=== PATIENT | male | born 1965 | race Caucasian/White ===

== ENCOUNTER 2016-11-28 00:44 | Emergency (ER) | payer MEDICAID, OTHER ==
[~2016-11-28] VITALS: Ht 190.5 cm; Wt 104.3 kg
--- NOTE | 2016-11-28 01:29 | Emergency Room Report ---
History of Present Illness General Chief Complaint: Pain Source: Patient Present Illness HPI 39-year-old male no significant past medical history presenting with right- sided neck pain. Patient states that he had dental procedure today, cavity filling in right lower dental area, states that he took one antibiotic dose, proceeded to have a right-sided neck pain tonight. Denies any shortness of breath, fever chills, chest pain Allergies: Coded Allergies: No Known Allergies (Unverified , 11/28/16) Patient History Past Medical History: see triage record Past Surgical History: none Pertinent Family History: none Reviewed Nursing Documentation: PMH: Agreed, PSxH: Agreed Nursing Documentation-PMH Past Medical History: No Stated History Review of Systems All Other Systems: negative except mentioned in HPI Physical Exam Vital Signs Date Time Temp Pulse Resp B/P (MAP) Pulse Ox O2 Delivery O2 Flow Rate FiO2 11/28/16 01:08 98.2 68 20 145/92 99 Room Air Sp02 EP Interpretation: reviewed, normal General Appearance: normal inspection, well appearing, alert, GCS 15, non-toxic , mild distress, other - Speaking complete sentences without any stridor Head: normocephalic, atraumatic Eyes: bilateral eye normal inspection, bilateral eye PERRL, bilateral eye EOMI ENT: normal voice, moist mucus membranes, other - Dental caries, right lower molar filling, no signs of dental abscess, no fluctuance, no tenderness along the gumline Neck: other - Right neck with mild edema noted, tender to palpation, mild erythema Respiratory: normal inspection, lungs clear, normal breath sounds, no respiratory distress, no retraction, no wheezing, speaking full sentences, chest symmetrical Cardiovascular #1: normal inspection, regular rate, rhythm, no edema, normal capillary refill Cardiovascular #2: 2+ radial (R), 2+ radial (L) Gastrointestinal: normal inspection, non tender, soft, non-distended, no guarding Genitourinary: no CVA tenderness Musculoskeletal: normal inspection, back normal, normal range of motion, non- tender Neurologic: normal inspection, alert, oriented x3, responsive, motor strength/ tone normal, sensory intact, normal gait, speech normal Psychiatric: normal inspection, judgement/insight normal, memory normal Skin: normal inspection, normal color, no rash, warm/dry, well hydrated, normal turgor Medical Decision Making Diagnostic Impression: Primary Impression: Submandibular sialoadenitis ER Course 42-year-old male with right neck pain and swelling DDX: No signs of dental abscess, rule out deep space neck infection/abscess Plan: Obtain labs, CT neck with IV contrast ER course: Patient has been monitored during ED stay, HD stable Continues to speak in complete sentences, without any stridor, feels much better with medications Patient's CAT scan negative for abscess, submandibular sialoadenitis, patient appears clinically well, nontoxic, able to take by mouth medication. Extensive conversation held with the patient and shared decision making to discharge patient to home, with strict 48 hour followup, to primary care doctor's office or emergency room for recheck. Patient also instructed to followup with the ENT specialist within one week dose clindamycin given in ED Disposition: Patient discharged to home Patient discharge with prescription of clindamycin Strict return precautions discussed with patient such as throat swelling, shortness of breath, high fever chills, inability to tolerate by mouth Please note that this Emergency Department Report was dictated using [email or web address] analyst technology software, occasionally this can lead to erroneous entry secondary to interpretation by the dictation equipment. Laboratory Tests Test 11/28/16 01:45 White Blood Count 14.2 K/UL (4.8-10.8) H Red Blood Count 5.55 M/UL (4.70-6.10) Hemoglobin 15.8 G/DL (14.2-18.0) Hematocrit 46.7 % (42.0-52.0) Mean Corpuscular Volume 84 FL (80-99) Mean Corpuscular Hemoglobin 28.4 PG (27.0-31.0) Mean Corpuscular Hemoglobin Concent 33.8 G/DL (32.0-36.0) Red Cell Distribution Width 11.4 % (11.6-14.8) L Platelet Count 206 K/UL (150-450) Mean Platelet Volume 8.6 FL (6.5-10.1) Neutrophils (%) (Auto) 64.1 % (45.0-75.0) Lymphocytes (%) (Auto) 24.7 % (20.0-45.0) Monocytes (%) (Auto) 8.0 % (1.0-10.0) Eosinophils (%) (Auto) 1.9 % (0.0-3.0) Basophils (%) (Auto) 1.4 % (0.0-2.0) Sodium Level 140 mEQ/L (135-145) Potassium Level 3.6 mEQ/L (3.4-4.9) Chloride Level 101 mEQ/L (98-107) Carbon Dioxide Level 26 mEQ/L (20-30) Anion Gap 13 (5-15) Blood Urea Nitrogen 18 mg/dL (7-23) Creatinine 1.0 mg/dL (0.7-1.2) Estimate Glomerular Filtration Rate > 60 mL/min (>60) Glucose Level 112 mg/dL (74-106) H Calcium Level 9.5 mg/dL (8.6-10.2) Total Bilirubin 0.7 mg/dL (0.0-1.2) Aspartate Amino Transferase (AST) 15 U/L (5-40) Alanine Aminotransferase (ALT) 19 U/L (3-41) Alkaline Phosphatase 74 U/L (40-129) Total Protein 7.6 g/dL (6.6-8.7) Albumin 4.6 g/dL (3.5-5.2) Globulin 3.0 g/dL Albumin/Globulin Ratio 1.5 (1.0-2.7) Rhythm Strip Diag. Results EP Interpretation: yes Rate: 80 Rhythm: NSR, no PVC's, no ectopy CT/MRI/US Diagnostic Results CT/MRI/US Diagnostic Results : Imaging Test Ordered: CT neck Impression CT NECK: Marked heterogeneous enlargement of left lobe of thyroid with extension to the upper mediastinum and there is mild resulting deviation of the trachea to the right but the trachea is not significantly narrowed. Subcentimeter right thyroid nodule. Asymmetrically larger appearance of right submandibular gland is likely related to positioning rather than true gland enlargement, but there is some right submandibular space fat stranding and overlying platysmal thickening and, therefore, possibility of right submandibular sialoadenitis should be considered. Also, prominent but not significantly enlarged right submandibular lymph node. No fluid collections. Osseous structures are unremarkable. Sinuses and lung apices are clear. by [employer] Electronically signed by Florentino Bliss MD Last Vital Signs Date Time Temp Pulse Resp B/P (MAP) Pulse Ox O2 Delivery O2 Flow Rate FiO2 11/28/16 01:08 98.2 68 20 145/92 99 Room Air Disposition: HOME, SELF-CARE Condition: Improved Scripts Clindamycin Hcl (CLINDAMYCIN HCL) 300 Mg Capsule 300 MG ORAL FOUR TIMES A DAY for 7 Days, #28 CAP 0 Refills Prov: Florentino Bliss M.D. 11/28/16 Florentino Bliss M.D. Nov 28, 2016 01:29
[2016-11-28] MEDS ORDERED: Morphine Sulfate 4mg/ml Inj IVP ONE (01:30)
[2016-11-28 01:35] VITALS: BP 145/92
[2016-11-28 02:02] LABS: BASOPHILS % (AUTO) 1.4 % (0.0-2.0); EOSINOPHILS % (AUTO) 1.9 % (0.0-3.0); LYMPHOCYTES % (AUTO) 24.7 % (20.0-45.0); MEAN CORPUSCULAR HEMOGLOBIN 28.4 PG (27.0-31.0); MEAN CORPUSCULAR HGB CONC 33.8 G/DL (32.0-36.0); MEAN CORPUSCULAR VOLUME 84 FL (80-99); MEAN PLATELET VOLUME 8.6 FL (6.5-10.1); NEUTROPHILS % (AUTO) 64.1 % (45.0-75.0); PLATELET COUNT 206 K/UL (150-450); RED BLOOD COUNT 5.55 M/UL (4.70-6.10); RED CELL DISTRIBUTION WIDTH 11.4 % (11.6-14.8); WHITE BLOOD COUNT 14.2 K/UL (4.8-10.8)
[2016-11-28 02:17] LABS: ALANINE AMINOTRANSFERASE 19 U/L (3-41); ALBUMIN/GLOBULIN RATIO 1.5 (1.0-2.7); ANION GAP 13 (5-15); ASPARTATE AMINO TRANSFERASE 15 U/L (5-40); CALCIUM 9.5 mg/dL (8.6-10.2); CARBON DIOXIDE 26 mEQ/L (20-30); CHLORIDE 101 mEQ/L (98-107); GLOMERULAR FILTRATION RATE > 60 mL/min (>60); HEMOLYSIS 8; POTASSIUM 3.6 mEQ/L (3.4-4.9); SODIUM 140 mEQ/L (135-145); TOTAL PROTEIN 7.6 g/dL (6.6-8.7)
[2016-11-28] MEDS ORDERED: Clindamycin 600mg 50 ML IVPB ONE (02:45)
[2016-11-28] MEDS ORDERED: Mylanta II UD 30ml ORAL ONE (04:00)
[2016-11-28] MEDS ORDERED: Lidocaine 2% Visc 15ml soln ORAL ONE (04:00)
[2016-11-28] MEDS ORDERED: Dicyclomine HCl 10mg/5ml oral soln ORAL ONE (04:00)
[2016-11-28 04:16] VITALS: BP 139/72
[2016-11-28] MEDS ORDERED: CLINDAMYCIN HC300 MG ORAL (04:25)
[2016-11-28 04:40] VITALS: BP 139/72
--- NOTE | 2016-11-28 11:59 | Diagnostic Imaging Report ---
Indication: Right-sided throat pain Technique: IV administration nonionic contrast Spiral acquisitions obtained through the neck Multiplanar reconstructions were generated. Total dose length product 560 mGycm. CTDIvol(s) 18 mGy. Radiation dose was minimized using automated exposure control Comparison: None Findings: There is equivocal asymmetric slight prominence of the right submandibular salivary gland and equivocal slight stranding of the surrounding fat and adjacent platysma muscle. The parotid glands are unremarkable. No salivary gland calculi demonstrated. Nasopharynx, oropharynx, hypopharynx, larynx symmetric, unremarkable. There are prominent bilateral anterior triangle jugulodigastric nodes measuring 2.5 cm long axis diameter bilaterally. No prevertebral soft tissue swelling. The parapharyngeal spaces are symmetric and unremarkable. No evidence of tonsillar swelling. No findings to suggest cervical abscess. The left side of the thyroid is enlarged, contains multiple masses, largest measuring 3.7 cm long axis dimension. Smaller nodules are seen in the right thyroid lobe. The enlarged left thyroid lobe deviates the trachea to the right. No definite calculi demonstrated. There are mild degenerative changes of the cervical spine. The included lung apices are clear. The included upper mediastinum is unremarkable. The visualized sinuses are clear. The mastoid air cells are clear. The visualized intracranial structures are unremarkable Impression: Questionable slight asymmetric enlargement of the right submandibular salivary gland. Possibly just physiologic, equivocal slight stranding of the adjacent fat and thickening of the adjacent platysma muscle raises concern for acute sialadenitis. No associated calculi demonstrated. Correlate with clinical findings. Nonspecific prominence to the bilateral jugulodigastric lymph nodes Markedly enlarged multinodular left thyroid lobe. Underlying malignancy not excludable, and further followup is recommended The CT scanner at [facility] is accredited by the [employer] and the scans are performed using protocols designed to limit radiation exposure to as low as reasonably achievable to attain images of sufficient resolution adequate for diagnostic evaluation.
== END 2016-11-28 04:50 | disposition home or self-care (01) ==
LOC: EMR 01:01
DX: K11.20 Sialoadenitis, unspecified (principal); K02.9 Dental caries, unspecified; E04.2 Nontoxic multinodular goiter
CPT/HCPCS: 36415; 70491; 80053; 85025; 96361; 96374; 96375; 99284; J2270; J2405; Q9967; S0028; S0077

== ENCOUNTER 2016-12-01 08:41 | Emergency (ER) | payer MEDICAID, OTHER ==
[~2016-12-01] VITALS: Ht 182.9 cm; Wt 86.2 kg
[~2016-12-01 08:41] MED LIST: CLINDAMYCIN HC300 MG ORAL
[2016-12-01 08:55] VITALS: BP 142/96
[2016-12-01] MEDS ORDERED: Morphine Sulfate 4mg/ml Inj IVP ONE ×2 (09:00→10:45)
[2016-12-01] MEDS ORDERED: Clindamycin 900mg 50 ML IVPB ONE (09:00)
[2016-12-01] MEDS ORDERED: Ketorolac 30mg Inj IV ONE (09:00)
--- NOTE | 2016-12-01 09:07 | Emergency Room Report ---
History of Present Illness General Chief Complaint: To Be Triaged Source: Patient Present Illness HPI Patient represents with severe mouth pain and unable to open his mouth. He was seen here 11/28 after a dental procedure. It looked like he had inflammation of his salivary gland on the right-hand side. He was treated with IV pain medication and also antibiotics. A CT scan was performed. This revealed stranding around the submandibular salivary glands. The patient returns with severe pain not been able to open his mouth. He states he is able to drink liquids at this time. He is biting the inside of his cheek because the swelling. The pain is constant and severe. The swelling has worsened. No NVD, dysuria. No headache. No problems breathing or swallowing. He states he saw another dentist today who stated he had to have "the cavity removed to allow the pus to be drained". Allergies: Coded Allergies: No Known Allergies (Unverified , 11/28/16) Patient History Past Medical History: see triage record, old chart reviewed Social History: Denies: smoking Social History Narrative brought by friend Reviewed Nursing Documentation: PMH: Agreed, PSxH: Agreed Review of Systems All Other Systems: negative except mentioned in HPI Physical Exam Vital Signs Date Time Temp Pulse Resp B/P (MAP) Pulse Ox O2 Delivery O2 Flow Rate FiO2 12/01/16 08:55 96.8 85 15 142/96 99 Room Air Sp02 EP Interpretation: reviewed, normal General Appearance: well appearing, no apparent distress, GCS 15 Head: normocephalic Eyes: bilateral eye normal inspection, bilateral eye PERRL ENT: moist mucus membranes, other - unable to open mouth. ++ swelling R cheek and angle of jaw Neck: supple Respiratory: chest non-tender, lungs clear, normal breath sounds Cardiovascular #1: regular rate, rhythm Cardiovascular #2: 2+ radial (R) Gastrointestinal: normal inspection, normal bowel sounds, non tender, no mass, non-distended Musculoskeletal: back normal, gait/station normal, normal range of motion Neurologic: alert, oriented x3, grossly normal Psychiatric: anxious - and demanding Skin: normal inspection, warm/dry Medical Decision Making Diagnostic Impression: Primary Impression: Abscess, jawline Additional Impression: Sialoadenitis of submandibular gland ER Course Patient presents with right facial swelling and increased pain. He was seen yesterday with the same problem and diagnosed with salivary gland inflammation. He needs to have reevaluation of his labs and also treatment with antibiotics and pain medication. He states he is able to tolerate liquids. There is no airway compromise at the moment. Other possible considerations are pterygomandibular abscess, dental abscess amongst others. Labs again reveal leukocytosis. Electrolytes are normal. The patient required multiple doses of pain medication. He was given IV hydration and also given a repeat dose of clindamycin here. We do not have ENT available (out of town). The patient presented to the nose and throat specialist at [facility] who felt that he may be able to be treated as an outpatient. I stated that the patient is unable to open his mouth and also a requiring high doses of pain medication. He then stated that he needed to present the patient to a general surgeon. I spoke with the neurosurgeon and he accepted the patient in consultation. The patient was accepted for admission by the hospitalist at [facility]. Laboratory Tests Test 12/01/16 09:15 White Blood Count 13.5 K/UL (4.8-10.8) H Red Blood Count 5.20 M/UL (4.70-6.10) Hemoglobin 15.4 G/DL (14.2-18.0) Hematocrit 43.7 % (42.0-52.0) Mean Corpuscular Volume 84 FL (80-99) Mean Corpuscular Hemoglobin 29.5 PG (27.0-31.0) Mean Corpuscular Hemoglobin Concent 35.1 G/DL (32.0-36.0) Red Cell Distribution Width 11.1 % (11.6-14.8) L Platelet Count 220 K/UL (150-450) Mean Platelet Volume 8.0 FL (6.5-10.1) Neutrophils (%) (Auto) 76.5 % (45.0-75.0) H Lymphocytes (%) (Auto) 12.7 % (20.0-45.0) L Monocytes (%) (Auto) 8.7 % (1.0-10.0) Eosinophils (%) (Auto) 1.3 % (0.0-3.0) Basophils (%) (Auto) 0.8 % (0.0-2.0) Prothrombin Time 10.7 SEC (9.30-11.50) Prothrombin Time INR 1.0 (0.9-1.1) PTT 28 SEC (23-33) Sodium Level 138 mEQ/L (135-145) Potassium Level 4.4 mEQ/L (3.4-4.9) Chloride Level 99 mEQ/L (98-107) Carbon Dioxide Level 26 mEQ/L (20-30) Anion Gap 13 (5-15) Blood Urea Nitrogen 13 mg/dL (7-23) Creatinine 1.0 mg/dL (0.7-1.2) Estimate Glomerular Filtration Rate > 60 mL/min (>60) Glucose Level 113 mg/dL (74-106) H Calcium Level 9.4 mg/dL (8.6-10.2) Total Bilirubin 1.3 mg/dL (0.0-1.2) H Direct Bilirubin 0.3 mg/dL (0.1-0.3) Aspartate Amino Transferase (AST) 15 U/L (5-40) Alanine Aminotransferase (ALT) 22 U/L (3-41) Alkaline Phosphatase 64 U/L (40-129) Total Creatine Kinase 81 U/L (38-174) Troponin I < 0.30 ng/mL (<=0.30) Total Protein 7.4 g/dL (6.6-8.7) Albumin 3.9 g/dL (3.5-5.2) Globulin 3.5 g/dL Albumin/Globulin Ratio 1.1 (1.0-2.7) EKG Diagnostic Results Rate: normal Rhythm: NSR ST Segments: no acute changes Rhythm Strip Diag. Results EP Interpretation: yes Rhythm: NSR, no PVC's, no ectopy CT/MRI/US Diagnostic Results CT/MRI/US Diagnostic Results : Imaging Test Ordered: maxilofacial CT 11/28 Impression stranding submandibular salivary gland Impression: Questionable slight asymmetric enlargement of the right submandibular salivary gland. Possibly just physiologic, equivocal slight stranding of the adjacent fat and thickening of the adjacent platysma muscle raises concern for acute sialadenitis. No associated calculi demonstrated. Correlate with clinical findings. Nonspecific prominence to the bilateral jugulodigastric lymph nodes Markedly enlarged multinodular left thyroid lobe. Underlying malignancy not excludable, and further followup is recommended Last Vital Signs Date Time Temp Pulse Resp B/P (MAP) Pulse Ox O2 Delivery O2 Flow Rate FiO2 12/01/16 13:24 97.8 61 15 130/96 100 Room Air Status: improved Disposition: XFER SHT-TRM HOSP - higher level of care Condition: Serious Mauri Olguin M.D. Dec 01, 2016 09:07
[2016-12-01] MEDS ORDERED: HYDROCODON-ACE1 EA13 ORAL (09:30)
[2016-12-01] MEDS ORDERED: AMOX TR-K CLV1 EAC1 ORAL (09:31)
[2016-12-01] MEDS ORDERED: NAPROXEN500 M2 ORAL (09:32)
[2016-12-01] MEDS ORDERED: IBUPROFEN600 MG ORAL (09:33)
[2016-12-01 09:35] LABS: ALANINE AMINOTRANSFERASE 22 U/L (3-41); ALBUMIN/GLOBULIN RATIO 1.1 (1.0-2.7); ANION GAP 13 (5-15); ASPARTATE AMINO TRANSFERASE 15 U/L (5-40); CALCIUM 9.4 mg/dL (8.6-10.2); CARBON DIOXIDE 26 mEQ/L (20-30); CHLORIDE 99 mEQ/L (98-107); GLOMERULAR FILTRATION RATE > 60 mL/min (>60); HEMOLYSIS 2; POTASSIUM 4.4 mEQ/L (3.4-4.9); SODIUM 138 mEQ/L (135-145); TOTAL PROTEIN 7.4 g/dL (6.6-8.7); TROPONIN I < 0.30 ng/mL (<=0.30)
[2016-12-01 09:40] LABS: BASOPHILS % (AUTO) 0.8 % (0.0-2.0); EOSINOPHILS % (AUTO) 1.3 % (0.0-3.0); LYMPHOCYTES % (AUTO) 12.7 % (20.0-45.0); MEAN CORPUSCULAR HEMOGLOBIN 29.5 PG (27.0-31.0); MEAN CORPUSCULAR HGB CONC 35.1 G/DL (32.0-36.0); MEAN CORPUSCULAR VOLUME 84 FL (80-99); MONOCYTES % (AUTO) 8.7 % (1.0-10.0); NEUTROPHILS % (AUTO) 76.5 % (45.0-75.0); PLATELET COUNT 220 K/UL (150-450); RED CELL DISTRIBUTION WIDTH 11.1 % (11.6-14.8); WHITE BLOOD COUNT 13.5 K/UL (4.8-10.8)
[2016-12-01 09:46] LABS: PROTHROMBIN TIME 10.7 SEC (9.30-11.50)
[2016-12-01 09:50] LABS: BILIRUBIN,DIRECT 0.3 mg/dL (0.1-0.3)
[2016-12-01 10:20] VITALS: BP 111/56
[2016-12-01] MEDS ORDERED: Hydromorphone 0.5mg/0.5ml inj IVP ONE (13:00)
[2016-12-01 13:24] VITALS: BP 130/96
== END 2016-12-01 13:20 | disposition short-term general hospital (02) ==
LOC: EMR 09:15
DX: M27.2 Inflammatory conditions of jaws (principal); K11.20 Sialoadenitis, unspecified
CPT/HCPCS: 36415; 80053; 82248; 82550; 84484; 85025; 85610; 85730; 93005; 96361; 96365; 96375; 96376; 99285; J1170; J1885; J2270; S0077